=== PATIENT | female | born 1965 | race Caucasian/White ===

== ENCOUNTER 2024-04-25 09:38 | Outpatient (CLI) | payer BC | END 2024-04-25 09:39 | disposition home or self-care (01) | LOC: CSHMRI 09:38 | PROVIDERS: ATTEND Internal Medicine Hematology & Oncology | DX: D32.9 Benign neoplasm of meninges, unspecified (principal); R42 Dizziness and giddiness; C50.919 Malignant neoplasm of unspecified site of unspecified female breast; G93.89 Other specified disorders of brain | CPT/HCPCS: 70553 ==

== ENCOUNTER 2024-12-28 09:12 | Outpatient (CLI) | payer BC | END 2024-12-28 09:13 | disposition home or self-care (01) | LOC: CSHMAMMO 09:12 | PROVIDERS: ATTEND Nurse Practitioner Family | DX: M85.851 Other specified disorders of bone density and structure, right thigh (principal); C50.211 Malignant neoplasm of upper-inner quadrant of right female breast; T38.6X5A Adverse effect of antigonadotrophins, antiestrogens, antiandrogens, not elsewhere classified, initial encounter; M85.852 Other specified disorders of bone density and structure, left thigh | CPT/HCPCS: 77080 ==